=== PATIENT | male | born 1950 | race Caucasian/White ===

== ENCOUNTER → 2018-02-10 | Outpatient (CLI) | payer OTHER ==
[~2018-02-10] MED LIST: CIPR500 PO; HYDMOR2 PO; IBUP800 PO; KETO10 PO; MEPE50 PO; META400 PO; OXYACE5T PO; OXYC10ER PO; OXYC40ER; PRED10 PO; PROM25 PO; RXHYDACE PO
== END | disposition home or self-care (01) ==
LOC: LAB EV 18:17 → LAB SHORT 18:17
DX: L02.91 Cutaneous abscess, unspecified (principal)
CPT/HCPCS: 87070; 87077; 87186; 87205

== ENCOUNTER → 2022-03-06 | Outpatient (CLI) | payer MEDICARE | END | disposition home or self-care (01) | LOC: LAB SHORT 07:24 → LAB 07:24 | DX: K11.8 Other diseases of salivary glands (principal) | CPT/HCPCS: 88173 ==

== ENCOUNTER 2022-04-07 06:03 | Day surgery (SDC) | payer MEDICARE ==
[~2022-04-07] VITALS: Ht 177.8 cm; Wt 85.4 kg
--- NOTE | 2022-04-07 08:06 | NUR ---
04/07/22 0806 Tracey Champion 50 MLS MIXED WITH EPI 0.25 MLS (1MG/ML) PER ORDER TO MAKE EPI 1:200,000 FOR INJECTION AT [facility] BY DR FIERRO. 3 MLS [address] [facility].
== END 2022-04-07 11:05 | disposition home or self-care (01) ==
LOC: ORSCSDS 06:03
PROVIDERS: Otolaryngology
PROC: 0CT90ZZ Resection of Left Parotid Gland, Open Approach (ICD-10-PCS; principal; 2022-04-07 07:30)
DX: C07 Malignant neoplasm of parotid gland (principal); K11.8 Other diseases of salivary glands; E78.00 Pure hypercholesterolemia, unspecified; Z79.899 Other long term (current) drug therapy
CPT/HCPCS: 88307; 88313; 88341; 88342; A9270; J0171; J1100; J2250; J2405; J2704; J3010; J7120

== ENCOUNTER 2023-06-15 22:45 | Observation (INO) | payer MEDICARE ==
[~2023-06-15] VITALS: Ht 177.8 cm; Wt 83.9 kg
[2023-06-15 23:10] LABS: BASOPHILS ABSOLUTE AUTO 0.03 K/mm3 (0.00-0.23); BASOPHILS PERCENT AUTO 1 % (0-2); EOSINOPHILS ABSOLUTE AUTO 0.08 K/mm3 (0.00-0.68); EOSINOPHILS PERCENT AUTO 2 % (0-6); Hematocrit 43.1 % (37.0-53.0); IMMATURE GRAN ABSOLUTE AUTO 0.03 K/mm3 (0.00-0.10); IMMATURE GRAN PERCENT AUTO 1 % (0-1); LYMPHOCYTES ABSOLUTE AUTO 1.19 K/mm3 (0.84-5.20); LYMPHOCYTES PERCENT AUTO 25 % (21-46); MONOCYTES ABSOLUTE AUTO 0.64 K/mm3 (0.16-1.47); MONOCYTES PERCENT AUTO 13 % (4-13); Mean Corpuscular HGB 32.4 pg (26.0-34.0); Mean Corpuscular HGB Conc 34.8 g/dL (31.5-36.5); Mean Corpuscular Volume 93 fL (80-100); NEUTROPHILS ABSOLUTE AUTO 2.81 K/mm3 (1.96-9.15); NEUTROPHILS PERCENT AUTO 59 % (41-73); Platelet Count 176 K/mm3 (150-400); RDW Coefficient Variation 12.7 % (11.7-14.2); RDW Standard Deviation 43.5 fL (35.1-46.3); Red Blood Cell Count 4.63 M/mm3 (4.30-5.90); White Blood Cell Count 4.78 K/mm3 (4.00-11.30)
[2023-06-15 23:27] LABS: Albumin, Blood 3.8 g/dL (3.4-5.0); Albumin/Globulin Ratio 1.3 (0.8-1.8); Bilirubin, Total 0.3 mg/dL (0.1-1.0); Bun/Creatinine Ratio 24.5 (12.0-20.0); Calcium, Blood 9.1 mg/dL (8.5-10.1); Creatinine, Blood 1.02 mg/dL (0.60-1.20); Potassium, Blood 4.2 mmol/L (3.5-5.5); Total Protein, Blood 6.8 g/dL (6.4-8.2)
[2023-06-15 23:29] LABS: Source, Urine Clean Catch
[2023-06-16 00:18] LABS: Bilirubin, Urine Neg (Neg); Blood, Urine 5+ (Neg); Glucose Qualitative, Urine Neg (Neg); Ketones, Urine Neg (Neg); Leukocyte Esterase, Urine 1+ (Neg); Nitrite, Urine Neg (Neg); Protein, Urine 2+ (Neg); Urobilinogen, Urine NORM (Normal)
[2023-06-16 00:25] LABS: Appearance, Urine Hazy (Clear); Color, Urine Yellow (P-Yellow)
[2023-06-16 00:26] LABS: Bacteria Few /hpf; Red Blood Cells, Urine TNTC /hpf (0-2); Squamous Epithelial Cells Not Seen /hpf (Few); White Blood Cells, Urine 0-2 /hpf (0-5)
[2023-06-16 04:47] VITALS: BP 127/78
[2023-06-16 07:10] LABS: BASOPHILS ABSOLUTE AUTO 0.01 K/mm3 (0.00-0.23); BASOPHILS PERCENT AUTO 0 % (0-2); EOSINOPHILS ABSOLUTE AUTO 0.03 K/mm3 (0.00-0.68); EOSINOPHILS PERCENT AUTO 1 % (0-6); Hematocrit 39.9 % (37.0-53.0); Hemoglobin 13.7 g/dL (13.5-17.5); IMMATURE GRAN ABSOLUTE AUTO 0.02 K/mm3 (0.00-0.10); IMMATURE GRAN PERCENT AUTO 0 % (0-1); LYMPHOCYTES ABSOLUTE AUTO 0.82 K/mm3 (0.84-5.20); LYMPHOCYTES PERCENT AUTO 17 % (21-46); MONOCYTES ABSOLUTE AUTO 0.59 K/mm3 (0.16-1.47); MONOCYTES PERCENT AUTO 13 % (4-13); Mean Corpuscular HGB 32.2 pg (26.0-34.0); Mean Corpuscular HGB Conc 34.3 g/dL (31.5-36.5); Mean Corpuscular Volume 94 fL (80-100); Mean Platelet Volume 9.9 fL (9.1-12.4); NEUTROPHILS ABSOLUTE AUTO 3.23 K/mm3 (1.96-9.15); NEUTROPHILS PERCENT AUTO 69 % (41-73); Platelet Count 147 K/mm3 (150-400); RDW Standard Deviation 44.5 fL (35.1-46.3); Red Blood Cell Count 4.26 M/mm3 (4.30-5.90)
[2023-06-16 07:30] LABS: Albumin, Blood 3.3 g/dL (3.4-5.0); Albumin/Globulin Ratio 1.1 (0.8-1.8); Bilirubin, Total 0.2 mg/dL (0.1-1.0); Bun/Creatinine Ratio 24.7 (12.0-20.0); Calcium, Blood 8.8 mg/dL (8.5-10.1); Creatinine, Blood 0.97 mg/dL (0.60-1.20); Globulin, Blood 2.9 g/dL (2.2-4.0); Potassium, Blood 4.6 mmol/L (3.5-5.5); Total Protein, Blood 6.2 g/dL (6.4-8.2)
--- NOTE | 2023-06-16 07:44 | NUR ---
SHIFT SUMMARY PT ARRIVED TO THE FLOOR AT 0445 FROM ER VIA WHEELCHAIR. IDEPENDENTLY TRANSERED TO BED. A&OX4, VSS ON ROOM AIR. NO C/O PAIN. ON A REG DIET, TRYING TO HAVE GOOD PO INTAKE TO FLUSH URETERAL STONE. PT IS STRAINING ALL URINE. UP INDEPENDENTLY AD SUSAN. BED IN LOWEST POSITION, CALL LIGHT WITHIN REACH. NO IGNITION SOURCES PRESENT. FIRE SAFETY CHECKS COMPLETED
[2023-06-16 07:49] VITALS: BP 113/73
[2023-06-16] MEDS ORDERED: PRAV20 PO (11:55)
[2023-06-16] MEDS ORDERED: TEMAZEPAM1511 PO (11:57)
[2023-06-16 15:22] VITALS: BP 133/73
--- NOTE | 2023-06-16 19:22 | NUR ---
SHIFT SUMMARY: PT A&O X4. PLEASANT AND COOPERATIVE WITH CARE. INDEPENDENT IN ROOM. DR. GOODEN PLACED D/C ORDERS THIS EVENING. PT C/O PAIN ONCE THIS AM. MEDICATED PER EMAR. NO C/O PAIN SINCE PAIN MEDICATION. CONTINUING TO STRAIN ALL URINE. ONE TIME BAG LR COMPLETED TODAY AND RESTARTED @ 150/HR. CALL LIGHT IN REACH. D/C TO BE COMPLETED ON EVENING SHIFT.
[2023-06-16] MEDS ORDERED: TAMS.4ER PO (19:56)
[2023-06-16] MEDS ORDERED: Cefpodoxime Pr100 MG PO (19:56)
[2023-06-16] MEDS ORDERED: OXAYDO5 M3 PO (19:56)
--- NOTE | 2023-06-16 22:51 | NUR ---
DISCHARGE NOTE PT FINISHED THE LITER OF LR, RECEIVED PRN PAIN MEDICATIONS, THEN HIS IV WAS REMOVED, CATHETER INTACT. NO REDNESS OR PAIN. LILIANA WAS GIVEN DISCHARGE INSTRUCTIONS. PT BROUGHT THE URINE STRAINER HOME SO HE CAN CONTINUE TO STRAIN HIS URINE. HE WAS WALKED DOWNSTAIRS TO WHERE HIS WAS WAITING IN THE CAR. PT IN GOOD SPIRITS, NO SIGNS OF DISTRESS AND EXCITED TO GO HOME.
== END 2023-06-16 22:10 | disposition home or self-care (01) ==
LOC: ER 22:45 → MEDS 22:46
PROVIDERS: Student in an Organized Health Care Education/Training Program; ADMIT Internal Medicine
DX: N13.2 Hydronephrosis with renal and ureteral calculous obstruction (principal); N40.0 Benign prostatic hyperplasia without lower urinary tract symptoms; K80.20 Calculus of gallbladder without cholecystitis without obstruction; N39.0 Urinary tract infection, site not specified; Z72.0 Tobacco use
CPT/HCPCS: 36415; 74177; 80053; 81001; 83605; 85025; 87040; 87086; 96361; 96365-59; 96375; 96376; 99285-25; A9270; G0378; J0696; J1885; J2270; J2405; J7030; J7120; Q9967

== ENCOUNTER 2023-06-18 06:24 | Emergency (ER) | payer MEDICARE ==
[~2023-06-18] VITALS: Ht 177.8 cm; Wt 83.9 kg
[~2023-06-18 06:24] MED LIST changes: +Cefpodoxime Pr100 MG PO; +OXAYDO5 M3 PO; +PRAV20 PO; +TAMS.4ER PO; +TEMAZEPAM1511 PO
[2023-06-18 07:09] LABS: BASOPHILS ABSOLUTE AUTO 0.02 K/mm3 (0.00-0.23); BASOPHILS PERCENT AUTO 0 % (0-2); EOSINOPHILS ABSOLUTE AUTO 0.04 K/mm3 (0.00-0.68); EOSINOPHILS PERCENT AUTO 1 % (0-6); Hematocrit 39.3 % (37.0-53.0); Hemoglobin 13.7 g/dL (13.5-17.5); IMMATURE GRAN ABSOLUTE AUTO 0.02 K/mm3 (0.00-0.10); IMMATURE GRAN PERCENT AUTO 0 % (0-1); LYMPHOCYTES PERCENT AUTO 7 % (21-46); MONOCYTES PERCENT AUTO 7 % (4-13); Mean Corpuscular HGB 32.6 pg (26.0-34.0); Mean Corpuscular HGB Conc 34.9 g/dL (31.5-36.5); Mean Corpuscular Volume 94 fL (80-100); Mean Platelet Volume 10.1 fL (9.1-12.4); NEUTROPHILS ABSOLUTE AUTO 5.77 K/mm3 (1.96-9.15); NEUTROPHILS PERCENT AUTO 84 % (41-73); Platelet Count 142 K/mm3 (150-400); RDW Coefficient Variation 12.5 % (11.7-14.2); RDW Standard Deviation 42.9 fL (35.1-46.3); White Blood Cell Count 6.85 K/mm3 (4.00-11.30)
[2023-06-18 07:25] LABS: Albumin, Blood 3.6 g/dL (3.4-5.0); Albumin/Globulin Ratio 1.3 (0.8-1.8); Bilirubin, Total 0.4 mg/dL (0.1-1.0); Calcium, Blood 8.9 mg/dL (8.5-10.1); Creatinine, Blood 1.05 mg/dL (0.60-1.20); Globulin, Blood 2.8 g/dL (2.2-4.0); Total Protein, Blood 6.4 g/dL (6.4-8.2)
[2023-06-18 09:06] LABS: Source, Urine Clean Catch
[2023-06-18 09:13] LABS: Appearance, Urine Clear (Clear); Bilirubin, Urine Neg (Neg); Blood, Urine 5+ (Neg); Glucose Qualitative, Urine Neg (Neg); Ketones, Urine Neg (Neg); Leukocyte Esterase, Urine Neg (Neg); Nitrite, Urine Neg (Neg); Protein, Urine Neg (Neg); Urobilinogen, Urine NORM (Normal)
[2023-06-18 09:27] LABS: Color, Urine Pale Yellow (P-Yellow)
[2023-06-18 09:29] LABS: Bacteria Rare /hpf; Squamous Epithelial Cells Rare /hpf (Few); White Blood Cells, Urine 0-2 /hpf (0-5)
[2023-06-18] MEDS ORDERED: HYDR1TAB94 PO (10:01)
[2023-06-18 10:19] VITALS: BP 131/80
== END 2023-06-18 10:20 | disposition home or self-care (01) ==
LOC: ER 06:24
PROVIDERS: Student in an Organized Health Care Education/Training Program
DX: N13.2 Hydronephrosis with renal and ureteral calculous obstruction (principal); Z79.899 Other long term (current) drug therapy; Z87.442 Personal history of urinary calculi
CPT/HCPCS: 36415; 74177; 80053; 81001; 83605; 85025; 96374; 96375; 99284-25; J1885; J3010; J7030; Q9967

== ENCOUNTER 2024-05-03 06:12 | Day surgery (SDC) | payer MEDICARE ==
[~2024-05-03] VITALS: Ht 177.8 cm; Wt 89.0 kg
[~2024-05-03 06:12] MED LIST changes: +HYDR1TAB94 PO
[2024-05-03] MEDS ORDERED: Lactated Ringer's 1,000 ML IV ONE ×2 (07:46→07:48)
[2024-05-03] MEDS ORDERED: propofoL 50 ML IV ONE (07:46)
[2024-05-03 08:59] VITALS: BP 109/75
--- NOTE | 2024-05-03 09:00 | NUR ---
05/03/24 0900 CONNIE ANTOINE AT BEDSIDE, ASSISTED PT IN RE -DRESSING. ROAD CUTTER OUT VIA WC.
== END 2024-05-03 09:00 | disposition home or self-care (01) ==
LOC: ORSCSDS 06:12
PROVIDERS: Surgery
PROC: 0DBK8ZX Excision of Ascending Colon, Via Natural or Artificial Opening Endoscopic, Diagnostic (ICD-10-PCS; principal; 2024-05-03 08:00)
PROC: 0DBM8ZX Excision of Descending Colon, Via Natural or Artificial Opening Endoscopic, Diagnostic (ICD-10-PCS; principal; 2024-05-03 08:00)
DX: Z12.11 Encounter for screening for malignant neoplasm of colon (principal); R19.5 Other fecal abnormalities; D12.4 Benign neoplasm of descending colon; D12.2 Benign neoplasm of ascending colon; D12.5 Benign neoplasm of sigmoid colon; K57.30 Diverticulosis of large intestine without perforation or abscess without bleeding; K64.8 Other hemorrhoids; Z85.46 Personal history of malignant neoplasm of prostate; Z79.899 Other long term (current) drug therapy
CPT/HCPCS: 88305; J2704; J7120

== ENCOUNTER → 2024-10-20 | Outpatient (CLI) | payer MEDICARE ==
[2024-10-20 14:35] LABS: BASOPHILS ABSOLUTE AUTO 0.02 K/mm3 (0.00-0.23); BASOPHILS PERCENT AUTO 1 % (0-2); EOSINOPHILS ABSOLUTE AUTO 0.15 K/mm3 (0.00-0.68); EOSINOPHILS PERCENT AUTO 4 % (0-6); Hematocrit 44.2 % (37.0-53.0); IMMATURE GRAN ABSOLUTE AUTO 0.03 K/mm3 (0.00-0.10); IMMATURE GRAN PERCENT AUTO 1 % (0-1); LYMPHOCYTES ABSOLUTE AUTO 1.03 K/mm3 (0.84-5.20); LYMPHOCYTES PERCENT AUTO 26 % (21-46); MONOCYTES ABSOLUTE AUTO 0.51 K/mm3 (0.16-1.47); MONOCYTES PERCENT AUTO 13 % (4-13); Mean Corpuscular HGB 32.1 pg (26.0-34.0); Mean Corpuscular HGB Conc 33.9 g/dL (31.5-36.5); Mean Corpuscular Volume 94 fL (80-100); Mean Platelet Volume 9.9 fL (9.1-12.4); NEUTROPHILS ABSOLUTE AUTO 2.29 K/mm3 (1.96-9.15); NEUTROPHILS PERCENT AUTO 57 % (41-73); Platelet Count 202 K/mm3 (150-400); RDW Coefficient Variation 13.1 % (11.7-14.2); RDW Standard Deviation 45.2 fL (35.1-46.3); Red Blood Cell Count 4.68 M/mm3 (4.30-5.90); White Blood Cell Count 4.03 K/mm3 (4.00-11.30)
[2024-10-20 14:45] LABS: Albumin, Blood 3.9 g/dL (3.4-5.0); Albumin/Globulin Ratio 1.2 (0.8-1.8); Bilirubin, Total 0.5 mg/dL (0.1-1.0); Bun/Creatinine Ratio 27.8 (12.0-20.0); Calcium, Blood 9.5 mg/dL (8.5-10.1); Creatinine, Blood 0.9 mg/dL (0.60-1.20); Globulin, Blood 3.2 g/dL (2.2-4.0); Potassium, Blood 4.6 mmol/L (3.5-5.5); Total Protein, Blood 7.1 g/dL (6.4-8.2)
== END ==
LOC: LAB SHORT 14:30 → LAB 14:30
DX: R06.02 Shortness of breath (principal)
CPT/HCPCS: 80053; 83880; 84484; 85025